=== PATIENT | female | born 2000 | race Caucasian/White ===

== ENCOUNTER 2023-10-25 15:43 | Emergency (ER) | payer OTHER, SELFPAY ==
[2023-10-25 15:59] VITALS: BP 121/69; PULSE 59; RESP 18; TEMP 36.9; O2SAT 99
--- NOTE | 2023-10-25 16:04 | ED.URI ---
HPI - URI/Sore Throat General Chief Complaint: Upper Respiratory Infection Stated Complaint: cough,fever, wheezing Time Seen by Provider: 10/25/23 16:07 Source: patient Mode of arrival: ambulatory Limitations: no limitations History of Present Illness HPI Narrative: 23-year-old female presented for complaint of cough and wheezing over the past 4 days. Endorses fever at onset that has resolved. Denies chest pain, shortness of breath, nausea vomiting, diarrhea or lethargy. She did 2 nebulizer treatments yesterday (her grandmother's medication), states she woke this morning feeling somewhat improved. Related Data Allergies Allergy/AdvReac Type Severity Reaction Status Date / Time Penicillins Allergy Mild Rash Verified 10/25/23 16:17 Review of Systems Review of Systems: CONSTITUTIONAL: Denies body aches, fever, chills, or sweats. EYES: Denies visual changes, redness, or discharge. ENT: Denies rhinorrhea, congestion, sore throat, or otalgia. CARDIOVASCULAR: Denies chest pain, palpitations, or edema. RESPIRATORY: Reports cough, wheezing. GASTROINTESTINAL: Denies abdominal pain, nausea, vomiting, or diarrhea. SKIN: Denies rash, itching, or wounds. MUSCULOSKELETAL: Denies back pain, joint pain, or myalgia. NEUROLOGIC: Denies headache All systems reviewed & are unremarkable except as noted in HPI and below PMFSH Comments At time of signature, I have reviewed and agree with nursing past medical, surgical, social and family history unless otherwise noted. Please see nursing chart for further information. There is no relevant family history pertinent to the presenting complaint Exam Narrative: GENERAL: Well-appearing, in no acute distress. EYES: EOMI. No redness or drainage. Conjunctivae normal. ENT: Mucous membranes pink and moist. No rhinorrhea. TMs normal bilaterally. Throat normal. Uvula midline. NECK: Normal AROM. Supple. CHEST: No respiratory distress. End inspiratory Wheezing to all kent. Speaks full sentences. No cough. HEART: Regular rate and rhythm. No murmur appreciated. ABDOMEN: Soft, nontender, nondistended, normal active bowel sounds. SKIN: Warm, dry, no rash. Capillary refill normal. Normal skin turgor. NEURO: Alert and oriented x3. Gait steady. PSYCH: Normal affect. Course Course Emergency Course: Patient is aware of diagnosis, understands and agrees to treatment plan. Anticipatory guidance given. Patient agrees to follow-up as directed and is aware of reasons to seek care at the emergency department. Portions of this record may have been created with voice recognition software Level of Care: Express Care Visit Vital Signs Vital signs: Vital Signs Temperature 98.4 F 10/25/23 15:59 Pulse Rate 59 L 10/25/23 15:59 Respiratory Rate 18 10/25/23 15:59 Blood Pressure 121/69 10/25/23 15:59 Pulse Oximetry 99 10/25/23 15:59 Oxygen Delivery Room Air 10/25/23 15:59 Temperature 98.4 F 10/25/23 15:59 Pulse Rate 59 L 10/25/23 15:59 Respiratory Rate 18 10/25/23 15:59 Blood Pressure 121/69 10/25/23 15:59 Pulse Oximetry 99 10/25/23 15:59 Oxygen Delivery Room Air 10/25/23 15:59 MDM - URI/Sore Throat MDM Narrative Medical decision making narrative: Discussed physical exam findings, neg flu and covid. reviewed prescriptions with patient. Advised supportive measures and signs/symptoms to go to the ER. Pt is appropriate for outpt treatment and f/u. Differential Diagnosis Differential diagnosis: Likely upper respiratory infection, sinusitis, viral infection and bronchitis Discharge Plan Discharge Clinical Impression: Bronchitis Patient Disposition: Home, Self-Care Condition: Stable Instructions: Antibiotic Form, Acute Bronchitis (ED) Additional Instructions: Acute bronchitis can be contagious because it is usually caused by infection with a virus or bacteria. It is usually for a few days but you can be contagious for up to one
== END 2023-10-25 16:38 | disposition home or self-care (01) ==
PROVIDERS: Emergency Provider Nurse Practitioner Family; PCP Nurse Practitioner Family
DX: J40 Bronchitis, not specified as acute or chronic (principal); J45.909 Unspecified asthma, uncomplicated
CPT/HCPCS: 87804; 99213; G0463

== ENCOUNTER 2024-02-03 16:45 | Emergency (ER) | payer OTHER, SELFPAY ==
[2024-02-03 17:15] VITALS: BP 116/49; PULSE 71; RESP 19; TEMP 36.9; O2SAT 99
--- NOTE | 2024-02-03 17:42 | ED.ASTHMA ---
HPI - Asthma General Chief Complaint: Asthma Stated Complaint: whezzing Time Seen by Provider: 02/03/24 17:30 Source: patient, RN notes reviewed and old records reviewed Mode of arrival: ambulatory Limitations: no limitations History of Present Illness HPI Narrative: Patient with history of asthma presents with complaints of wheezing. She reports that she had some URI symptoms last week, these have since resolved, but she has noticed that ever since she has had some residual wheezing and cough. She denies any shortness of breath. She denies any fever, chills, sweats. Cough is not productive, she does say that it is consistent with her typical asthma type cough. She has an albuterol inhaler, says that she is using this and it is helping. She is able to speak in complete sentences. Not in any distress, including respiratory distress. No other concerns or complaints today. Related Data Allergies Allergy/AdvReac Type Severity Reaction Status Date / Time Penicillins Allergy Mild Rash Verified 02/03/24 17:58 Review of Systems Review of Systems: All systems reviewed & are unremarkable except as noted in HPI and below Constitutional: Constitutional: Reports no additional constitutional complaints ENT: Reports system reviewed and no additional complaints, except as documented Cardiovascular: Cardiovascular: Reports no additional cardiovascular complaints Respiratory: Respiratory: Reports no additional respiratory complaints, Denies chest congestion, Reports cough, Denies pain with cough, Denies stridor and Reports wheezing Gastrointestinal: Gastrointestinal: Reports no additional gastrointestinal complaints PMFSH Comments At the time of my signature, I reviewed and agree with the nursing past medical, surgical, social, and family history. There is no relevant family history pertinent to the patient complaint. Exam Const: General: cooperative, no acute distress, alert and awake Orientation/consciousness: oriented to person, oriented to place and oriented to time HENMT: Head: normal to inspection Mouth: Yes moist mucous membranes Resp: Effort & Inspection: normal respiratory effort and able to speak in complete sentences Auscultation: clear to auscultation bilaterally, no crackles, no rales, no rhonchi and wheezes expiratory wheezes and scattered wheezes Cardio: Palpation: normal PMI Rate: regular rate Rhythm: regular rhythm Heart sounds: S1 normal heart sound present and S2 normal heart sound present Neuro: General: oriented to person, oriented to place and oriented to time Cranial nerves: Yes CN's II-XII intact bilaterally Psych: Appearance: grossly normal Thought process: Normal thought process present Insight: Good insight present (Psych) Judgement: Good judgement present (Psych) Course Course Level of Care: Express Care Visit Vital Signs Vital signs: Vital Signs Temperature 98.5 F 02/03/24 17:15 Pulse Rate 71 02/03/24 17:15 Respiratory Rate 19 02/03/24 17:15 Blood Pressure 116/49 L 02/03/24 17:15 Pulse Oximetry 99 02/03/24 17:15 Oxygen Delivery Room Air 02/03/24 17:15 Temperature 98.5 F 02/03/24 17:15 Pulse Rate 71 02/03/24 17:15 Respiratory Rate 19 02/03/24 17:15 Blood Pressure 116/49 L 02/03/24 17:15 Pulse Oximetry 99 02/03/24 17:15 Oxygen Delivery Room Air 02/03/24 17:15 Reviewed MDM - Asthma MDM Narrative Medical decision making narrative: Asthmatic patient with mild scattered expiratory wheezes on exam. Speaking in full sentences, no distress. She states that she has plenty of albuterol at home. Will prescribe steroid burst, Singulair. Reports she took singular with good success when she was younger. Says that Claritin and Zyrtec are not helping very much. Follow with primary care provider. Emergency department for new or worse symptoms. Discharge instructions reviewed with patient, as well as provided in writing per nursing staff. The instru
== END 2024-02-03 18:00 | disposition home or self-care (01) ==
PROVIDERS: Emergency Provider Nurse Practitioner Family; PCP Nurse Practitioner
DX: J45.901 Unspecified asthma with (acute) exacerbation (principal); K21.9 Gastro-esophageal reflux disease without esophagitis; E11.9 Type 2 diabetes mellitus without complications
CPT/HCPCS: 99213; G0463